=== PATIENT | female | born 1950 | race Caucasian/White ===

== ENCOUNTER 2025-04-20 11:31 | Emergency (ER) | payer OTHER ==
[~2025-04-20] VITALS: Ht 160 cm; Wt 90.7 kg
--- NOTE | 2025-04-20 11:51 | ERN ---
ED Note History of Present Illness Stated Complaint: BILL GROIN PAIN Chief Complaint: Groin Pain Time Seen by MD: 11:38 Dictation: PATIENT IS A 75-YEAR-OLD FEMALE COMING IN TODAY WITH COMPLAINTS OF SUPRAPUBIC PAIN SHE HAS HAD FOR SEVERAL DAYS AND DIFFICULTY WITH MICTURITION. SHE STATES SHE HAS A HISTORY OF A HYSTERECTOMY 15 YEARS AGO AND NORMALLY THEY DO A BLADDER SUSPENSION WITHOUT HOWEVER THEY DID NOT DO IT WHERE SHE LIVES UP [place]. SHE STATES SHE HAS HAD TROUBLE WITH DRIBBLING SINCE THEN BUT LATELY IN THE LAST SEVERAL DAYS AFTER STARTING SOME PELVIC FLOOR EXERCISES, SHE WAS HAVING TROUBLE WITH URINATION. NO FEVER NO CHILLS. NO FLANK PAIN. Allergies: Coded Allergies: Penicillins (Unverified Allergy, Unknown, 04/20/25) povidone-iodine (Unverified Allergy, Unknown, 04/20/25) Past Medical History Past Medical History: Anxiety, Hypertension, Other Additional Past Medical Hx: kidney stones Surgical History: Hysterectomy, Cholecystectomy Surgical History Other: right knee sx History: Not Applicable RN Note Reviewed/Agreed w/PFSH: Yes Review of System Dictation CONSTITUTIONAL: Negative except for HPI HEAD/FACE: Negative except for HPI EENT: Negative except for HPI RESPIRATORY: Negative except for HPI GASTROINTESTINAL/ABDOMINAL: Negative except for HPI GENITOURINARY: Negative except for HPI mild suprapubic tenderness. Negative CVAT MUSCULOSKELETAL: Negative except for HPI INTEGUMENTARY: Negative except for HPI NEUROLOGICAL/PSYCH: Negative except for HPI HEMATOLOGIC/LYMPHATIC: Negative except for HPI All Systems Negative, Except as noted above. 13 point review of systems assessed and all negative except for above. Initial Vital Sign VS Vital Signs Date Time Temp Pulse Resp B/P (MAP) Pulse Ox O2 Delivery O2 Flow Rate FiO2 04/20/25 11:33 98.4 87 16 117/65 94 Room Air 0 04/20/25 11:37 21 Physical Exam Dictation Vital Signs reviewed General Appearance: Alert, oriented x 3, mild acute distress, well developed, nourished. Head and Face: non-traumatic. Eyes: PERRL, pink conjunctivas, eyelid no trauma, anterior chamber with arcus senilis. Ears: Pinnas intact and no signs of trauma or erythema ear canals clear and no discharge TM no erythema Nose: No discharge, no bleeding. Oropharynx: Mouth normal, tongue pink, pharynx clear,no erythema, tonsils no exudates, no abscesses noted, mucous membrane moist Neck: Supple, non-tender, no thyromegaly, no masses, no JVD, no bruits Breast:Deferred Chest:No tenderness, no crepitus, no paradoxical movement, no retractions Lungs:Clear, well-ventilated, symmetric, no rales, no wheezing, no rhonchi, no stridor, good breath sounds bilaterally Heart: Regular rate, regular rhythm, no murmur, no gallops Vascular: no peripheral edema, Abdomen: Soft, positive bowel sounds, nondistended, no guarding, nontender, no rebound, no masses no hepatomegaly, no splenomegaly, no Martin's sign, no hernias. Negative CVAT bilaterally Rectal: Deferred Genital: Deferred no bladder distention bladder not palpable. Neurological: Normal speech, motor function intact, sensory function intact Musculoskeletal: Neck nontender, full range of motion, back nontender, full range of motion, Extremities: nontender, full range of motion Skin: Color pink, dry, no turgor, no rash, no lacerations, no abrasions, no contusions. Lymphatic: Deferred Results (Laboratory/Radiology) Laboratory/Radiology Laboratory Tests Test 04/20/25 12:03 04/20/25 12:10 White Blood Count 10.0 K/uL (4.8-10.8) Red Blood Count 4.53 MIL/uL (4.00-5.50) Hemoglobin 14.3 g/dL (12.0-16.0) Hematocrit 42.7 % (36-48) Mean Corpuscular Volume 94.3 fL (79-99) Mean Corpuscular Hemoglobin 31.6 pg (27.0-33.0) Mean Corpuscular Hemoglobin Concent 33.5 g/dL (32.0-36.0) Red Cell Distribution Width 12.9 % (11.0-15.5) Platelet Count 298 K/uL (130-400) Mean Platelet Volume 8.9 fL (7.5-10.5) Immature Granulocyte % (Auto) 0.2 % (0-1) Neutrophils (%) (Auto) 65.5 % (40.0-77.0) Lymphocytes (%) (Auto) 25.6 % (21.0-51.0) Monocytes (%) (Auto) 7.6 % (3.0-13.0) Eosinophils (%) (Auto) 0.6 % (0.0-8.0) Basophils (%) (Auto) 0.5 % (0.0-5.0) Neutrophils # (Auto) 6.5 K/uL (1.8-7.7) Lymphocytes # (Auto) 2.6 K/uL (1.0-4.8) Monocytes # (Auto) 0.8 K/uL (0.1-1.0) Eosinophils # (Auto) 0.06 K/uL (0.00-0.70) Basophils # (Auto) 0.05 K/uL (0.00-0.20) Absolute Immature Granulocyte (auto 0.02 K/uL (0-1) Nucleated Red Blood Cells 0.0 % (0.0-0.19) Sodium Level 137 mmol/L (136-145) Potassium Level 3.7 mmol/L (3.5-5.1) Chloride Level 99 mmol/L (101-111) L Carbon Dioxide Level 30 mmol/L (21-32) Blood Urea Nitrogen 8 mg/dL (7-18) Creatinine 0.7 mg/dL (0.5-1.0) Glomerular Filtration Rate Calc 90 mL/min (>90) Random Glucose 98 mg/dL (70-105) Total Calcium 9.3 mg/dL (8.5-10.1) Lipase 36 U/L (16-77) Urine Color YELLOW (YELLOW) Urine Appearance CLOUDY (CLEAR) H Urine pH 6.0 (5.0-8.0) Urine Specific [place] 1.023 (1.001-1.031) Urine Protein 30 mg/dL (NEGATIVE) H Urine Glucose (UA) NEGATIVE mg/dL (NEGATIVE) Urine Ketones 10 mg/dL (NEGATIVE) H Urine Occult Blood NEGATIVE (NEGATIVE) Urine Nitrate NEGATIVE (NEGATIVE) Urine Bilirubin 0.5 mg/dL (NEGATIVE) H Urine Urobilinogen 2.0 mg/dL (0.2-1.0) H Urine Leukocyte Esterase NEGATIVE Juan/uL Urine RBC 2-5 /HPF (0-1) H Urine WBC 2-5 /HPF (0-1) H Urine Squamous Epithelial Cells MANY /HPF (0-2) Urine Non-Squamous Epithelial Cells <1 /HPF (0-2) Urine Bacteria MOD /HPF (None Seen) Urine Hyaline Casts 6-10 /LPF (0-1 /LPF) H CT ABDOMEN/PELVIS W/CONTRAST REASON: Left lower and right lower quadrant pain tenderness COMPARISON: None. FINDINGS: Lung bases are clear. There are no focal liver lesions. The liver has grade 1 hepatic steatosis. There are normal-appearing kidneys.. Spleen and pancreas appear unremarkable. The gallbladder is surgically absent with clips in the gallbladder fossa.. There is diverticulosis within the sigmoid colon with suspicion for early fat stranding possibly an early diverticulitis. Bowel loops appear unremarkable. This includes normal appearance of the appendix There is no evidence of free fluid or intraperitoneal air. There are no focal fluid collections. Aorta and retroperitoneum appear normal as do pelvic soft tissue structures. The anterior abdominal wall is intact. Osseous structures appear unremarkable. There is disc disease with sclerotic endplates seen at L4-L5. There is also disc disease seen at L5-S1. IMPRESSION: 1. Suspicion for nonperforated sigmoid colonic diverticulitis CT was performed with one or more following dose reduction techniques: automated exposure control, adjustment of the mA and kv according to patient's size, or use of a iterative reconstruction technique. Labs Reviewed?: Yes ED Course ED Course Orders Procedure Category Date Status Time Bladder Scan CPOE 04/20/25 Transmitted 11:49 Cbc With Differential LAB 04/20/25 Complete 11:49 Urinalysis Profile LAB 04/20/25 Complete 11:49 Lipase LAB 04/20/25 Complete 11:49 Basic Metabolic Panel LAB 04/20/25 Complete 11:49 Levofloxacin 500mg PHA 04/20/25 Complete Tab (Levaquin 500mg T 13:02 Phenazopyridine Hcl PHA 04/20/25 Complete 200 Mg Tab (Pyridium 13:30 Ct Abdomen/Pelvis CT 04/20/25 Resulted W/Contrast 13:08 0.9%Nacl 1000ml (Ns PHA 04/20/25 Complete 1000ml) 13:30 Ketorolac PHA 04/20/25 Complete Tromethamine 15mg/Ml 13:30 Iohexol (Omnipaque) PHA 04/20/25 Complete 13:38 Levofloxacin 500 PHA 04/20/25 Complete Mg/D5w 100 Ml 15:10 Metronidazole (Flagyl) PHA 04/20/25 In Process 15:30 Current Medications Medications (Trade) Dose Ordered Sig/Armando Route PRN Reason Start Time Stop Time Status Last Admin Dose Admin Iohexol (Omnipaque) 75 ml STK-MED ONCE IV 04/20/25 13:38 04/20/25 13:38 DC Ketorolac Tromethamine (toRADol) 15 mg ONCE ONCE IV 04/20/25 13:30 04/20/25 13:31 DC 04/20/25 13:35 Levofloxacin (LEvaquIN 500MG TAB) 500 mg ONCE STAT PO 04/20/25 13:02 04/20/25 13:09 DC Levofloxacin/ Dextrose 100 ml @ 100 mls/hr ONCE STAT IV 04/20/25 15:10 04/20/25 16:09 DC 04/20/25 16:04 Metronidazole (flaGYL) 500 mg ONCE PO 04/20/25 15:30 04/30/25 15:29 04/20/25 16:04 Phenazopyridine HCl (PYRIdium HCL 200 MG TAB) 200 mg ONCE ONCE PO 04/20/25 13:30 04/20/25 13:09 DC Sodium Chloride 1,000 ml @ 0 mls/hr ONCE ONCE IV 04/20/25 13:30 04/20/25 13:31 DC 04/20/25 13:35 Vital Signs Date Time Temp Pulse Resp B/P (MAP) Pulse Ox O2 Delivery O2 Flow Rate FiO2 04/20/25 11:37 98.4 87 46 117/65 94 Room Air* 0 21 04/20/25 11:33 98.4 87 16 117/65 94 Room Air 0 1305/bladder scan demonstrates 10 mL per Cortez RN 1600/SPOKE WITH PATIENT AT LENGTH REGARDING HER LAB FINDINGS TO INCLUDE CT SCAN DEMONSTRATING DIVERTICULITIS. SHE DOES NOT WANT TO BE ADMITTED TO THE HOSPITAL FOR CONTROL SHE STATES SHE UNDERSTANDS CLEAR LIQUID DIET AND MAINTAIN COMPLIANCE WITH HER METRONIDAZOLE AND LEVAQUIN FOR 10 DAYS CLEAR LIQUID DIET FOR 2-3 DAYS AND THEN HIGH-FIBER Medical Decision Making MDM MDM: DIFFERENTIAL DIAGNOSIS: UTI/ACUTE URINARY TRACT INFECTION/RETENTION/ELECTROLYTE IMBALANCE/DEHYDRATION/APPENDICITIS/DIVERTICULITIS/HERNIA RATIONALE: TESTS CONSIDERED AND ORDERED SECONDARY TO SHARED DECISION MAKING INCLUDE: LABS/RADIOLOGY PREVIOUS OUTSIDE RECORDS REVIEWED: OLD ER VISITS. RISK OF COMPLICATION AND/OR MORBIDITY OR MORTALITY OF PATIENT MANAGEMENT: NONE MEDICATIONS-PER MEDICATION RECONCILIATION NEED FOR HOSPITALIZATION: PATIENT DOES NOT MEET CRITERIA FOR HOSPITALIZATION. PATIENT REFUSED ADMISSION AT THIS TIME WANTS TO BE TREATED AT HOME FOR UTI AND DIVERTICULITIS NEED FOR EMERGENCY MAJOR/MINOR SURGERY: NO THERE ARE NO SOCIAL CONCERNS WITH THIS PATIENT. PRESCRIPTION DRUG MANAGEMENT ULTRACET/LEVAQUIN/METRONIDAZOLE INSTRUCTIONS ON CLEAR LIQUID DIET PRESCRIPTIONS WILL INCLUDE SYMPTOMATIC CARE PATIENT'S PRIOR EXTERNAL MEDICAL RECORDS FROM OTHER ER VISITS WERE REVIEWED BY ME INDICATED. PRIOR TESTING AND RESULTS FROM PREVIOUS VISITS WERE REVIEWED. PRIOR TESTS WERE TAKEN INTO ACCOUNT WITH MEDICAL DECISION MAKING AND RESOURCE UTILIZATION, INDEPENDENT HISTORIAN/HISTORIANS WERE USED TO OBTAIN COMPLETE MEDICAL HISTORY. I INDEPENDENTLY INTERPRETED THE TEST THAT WERE PERFORMED, RESULTS WERE REVIEWED BY ME AND CONSIDERED FINDINGS ON RADIOLOGY IF ORDERED. MEDICAL MANAGEMENT AND EXAMINATION INTERPRETATION DISCUSSIONS WERE HAD BY ME WITH OTHER QUALIFIED HEALTHCARE PROFESSIONALS INDICATED FOR THE PATIENT'S CARE. DX & DISP Disposition: Discharge Departure Impression: Primary Impression: Acute diverticulitis of intestine Additional Impressions: Acute cystitis with hematuria, Hypochloremia Condition: Stable Scripts Acetaminophen with Codeine (Acetaminophen-Cod #3 Tablet) 300 Mg-30 Mg Tablet 1 TAB PO Q4H PRN for MODERATE TO SEVERE, #15 TAB 0 Refills Prov: JENNY EDMONDS NP 04/20/25 Metronidazole (Metronidazole) 500 Mg Tablet 1 TAB PO TID for 10 Days, #30 TAB 0 Refills Prov: JENNY EDMONDS NP 04/20/25 Levofloxacin (Levofloxacin) 500 Mg Tablet 1 TAB PO DAILY for 10 Days, #10 TAB 0 Refills Prov: JENNY EDMONDS NP 04/20/25 Additional Instructions: Follow-up with primary care provider in 1 to 2 days. Take medications as directed here in the emergency room. Okay to continue home medications unless otherwise discussed during your visit in the emergency room today. Return to your nearest emergency room if symptoms worsen or if there is no improvement. Call 911 if you need immediate assistance. Take Tylenol or Motrin [id number] as needed and if no contraindications are present. Increase oral hydration. A wound culture or urine culture was ordered here in the emergency room department please follow-up with primary care provider and advise them to get repeat ports from our facility. If you had any Jayro wrap/splints that were applied here, please do not remove them until you see your primary care or specialty. Follow a clear liquid diet for the next 2-3 days, then advance diet slowly to a high-fiber diet. Take levofloxacin and metronidazole as directed until gone. Increase your fluid intake. See your primary care doctor for follow up in the next 3-4 days. Referrals: SELF,REFERRAL (PCP) Time of Disposition: 16:02 I have reviewed the case, and I agree with, Diagnosis and Plan JENNY EDMONDS NP Apr 20, 2025 11:51
--- NOTE | 2025-04-20 12:10 | NUR ---
10CC FROM BLADDER SCAN
[2025-04-20 12:15] LABS: IMMATURE GRANULOCYTE ABSOLUTE 0.02 K/uL (0-1); NUCLEATED RED BLOOD CELLS 0.0 % (0.0-0.19); PLATELET COUNT (AUTO) 298 K/uL (130-400); RED BLOOD CELL COUNT(AUTO) 4.53 MIL/uL (4.00-5.50); RED CELL DISTRIBUTION WIDTH 12.9 % (11.0-15.5); WHITE BLOOD COUNT (AUTO) 10.0 K/uL (4.8-10.8)
[2025-04-20 12:24] LABS: CREATININE 0.7 mg/dL (0.5-1.0); GLOMERULAR FILTR. RATE CALC 90.0 mL/min (>90); GLUCOSE,RANDOM 98.0 mg/dL (70-105); SODIUM SERUM 137.0 mmol/L (136-145); UREA NITROGEN, BLOOD 8.0 mg/dL (7-18)
[2025-04-20 12:31] LABS: APPEARANCE,URINE CLOUDY (CLEAR); GLUCOSE, URINE (UA) NEGATIVE (NEGATIVE); LEUKOCYTE ESTERASE ,URINE NEGATIVE Leu/uL (NEGATIVE); NITRATE,URINE NEGATIVE (NEGATIVE); OCCULT BLOOD,URINE NEGATIVE (NEGATIVE)
[2025-04-20 12:32] LABS: ADD UA MICROSCOPIC YES
[2025-04-20 12:44] LABS: NON-SQUAMOUS EPITHELIAL CELL <1 /HPF (0-2); SQUAMOUS EPITHELIAL CELL,UR MANY /HPF (0-2)
[2025-04-20] MEDS ORDERED: PHENAZOpyridine HCL 200 MG TAB 200 MG TABLET PO ONE (13:30)
[2025-04-20] MEDS: 0.9%NACL 1000ML 1,000 ML IV ONE (13:35)
[2025-04-20] MEDS ORDERED: IOHEXOL-350 75 ML VIAL IV ONE (13:38)
--- NOTE | 2025-04-20 14:48 | HMCIMG ---
CT ABDOMEN/PELVIS W/CONTRAST REASON: Left lower and right lower quadrant pain tenderness COMPARISON: None. FINDINGS: Lung bases are clear. There are no focal liver lesions. The liver has grade 1 hepatic steatosis. There are normal-appearing kidneys.. Spleen and pancreas appear unremarkable. The gallbladder is surgically absent with clips in the gallbladder fossa.. There is diverticulosis within the sigmoid colon with suspicion for early fat stranding possibly an early diverticulitis. Bowel loops appear unremarkable. This includes normal appearance of the appendix There is no evidence of free fluid or intraperitoneal air. There are no focal fluid collections. Aorta and retroperitoneum appear normal as do pelvic soft tissue structures. The anterior abdominal wall is intact. Osseous structures appear unremarkable. There is disc disease with sclerotic endplates seen at L4-L5. There is also disc disease seen at L5-S1. IMPRESSION: 1. Suspicion for nonperforated sigmoid colonic diverticulitis CT was performed with one or more following dose reduction techniques: automated exposure control, adjustment of the mA and kv according to patient's size, or use of a iterative reconstruction technique.
[2025-04-20] MEDS ORDERED: ACET-2079 PO (16:20)
[2025-04-20] MEDS ORDERED: LEVO-70 PO (16:20)
[2025-04-20] MEDS ORDERED: METR-172 PO (16:20)
[2025-04-20 16:34] VITALS: BP 121/65; PULSE 85; RESP 16; TEMP 98.4; O2SAT 95
== END 2025-04-20 16:37 | disposition home or self-care (01) ==
LOC: EDH 11:31
DX: K57.32 Diverticulitis of large intestine without perforation or abscess without bleeding (principal); N30.01 Acute cystitis with hematuria; E87.8 Other disorders of electrolyte and fluid balance, not elsewhere classified; I10 Essential (primary) hypertension; Z88.0 Allergy status to penicillin; Z88.8 Allergy status to other drugs, medicaments and biological substances; Z90.49 Acquired absence of other specified parts of digestive tract; Z90.710 Acquired absence of both cervix and uterus
CPT/HCPCS: 99285; 74177; 96365; 96361; 96375; 80048; 83690; 85025; 81001; 36415; J1885; J1956; J7030; Q9967